=== PATIENT | female | born 1935 | race African-American/Black ===

== ENCOUNTER 2019-04-01 18:24 | Emergency (ER) | payer MEDICARE, SELFPAY ==
[2019-04-01 18:40] VITALS: BP 106/79; PULSE 86; RESP 16; TEMP 36.6; O2SAT 100
--- NOTE | 2019-04-01 19:43 | ED.GENADULT ---
HPI - General Adult General Chief complaint: Wound/Laceration Stated complaint: Ear Wound Time Seen by Provider: 04/01/19 18:47 Source: patient Mode of arrival: ambulatory Limitations: no limitations History of Present Illness HPI narrative: Patient is a 84-year-old female who presents with family for bleeding from the right ear canal is currently on Eliquis which she takes for chronic A. fib patient on arrival to emergency department is resting comfortably in the room in no distress patient has not been sick or had URI symptoms or any injury or trauma per family patient on arrival resting comfortably in the room in no distress Review of Systems Review of Systems: All systems reviewed & are unremarkable except as noted in HPI and below PMFSH Past Medical History Medical History Atrial fibrillation Social History Social History Smoking status: Never smoker Exam Narrative: Exam Narrative: GENERAL: Well-appearing, well-nourished, and in no acute distress. HEAD: Normocephalic, atraumatic. EYES: PERRLA and EOMI. ENT: Nares clear, no rhinorrhea or epistaxis. Mucous membranes moist. Oropharynx without tonsillar hypertrophy exudate or other lesions. Left TM pearly bradshaw nonbulging small amount of cerumen in the canal. Right TM not erythematous nonbulging small amount of residual blood in the right canal no active bleeding EXTREMITIES: Normal range of motion. No edema. SKIN: Warm, dry, no rash. NEURO: No focal deficits. Alert and oriented x3. PSYCH: Normal mood and affect. Course Course Emergency Course: Patient with bleeding from the right ear canal with no obvious site and no distress resting comfortably Vital Signs Vital signs: Vital Signs Temperature 97.8 F 04/01/19 18:40 Pulse Rate 86 04/01/19 18:40 Respiratory Rate 16 04/01/19 18:40 Blood Pressure 106/79 04/01/19 18:40 Pulse Oximetry 100 04/01/19 18:40 Temperature 97.8 F 04/01/19 18:40 Pulse Rate 86 04/01/19 18:40 Respiratory Rate 16 04/01/19 18:40 Blood Pressure 106/79 04/01/19 18:40 Pulse Oximetry 100 04/01/19 18:40 Medical Decision Making MDM Narrative Medical decision making narrative: Patient in the room in no distress aware of case findings treatment plan and diagnosis agreeing to follow-up as directed or to return if symptoms worsen or concerns provided with ENT referral Vital Signs Vital Signs: Vital Signs Temperature 97.8 F 04/01/19 18:40 Pulse Rate 86 04/01/19 18:40 Respiratory Rate 16 04/01/19 18:40 Blood Pressure 106/79 04/01/19 18:40 Pulse Oximetry 100 04/01/19 18:40 Temperature 97.8 F 04/01/19 18:40 Pulse Rate 86 04/01/19 18:40 Respiratory Rate 16 04/01/19 18:40 Blood Pressure 106/79 04/01/19 18:40 Pulse Oximetry 100 04/01/19 18:40 Discharge Plan Discharge Clinical Impression: Bleeding from right ear Patient Disposition: Home, Self-Care Condition: Stable Instructions: Antibiotic Form, Acute Wounds (ED) Additional Instructions: Follow up with your primary care doctor in 5-7 days for re-evaluation. Go to ER for worsening pain, vision changes, nausea/vomiting, fever/chills, weakness, chest pain, shortness of breath, numbness/tingling, slurred speech, difficulty walking, change in mental status etc. or any other concerns. Follow-up with ENT in the next 7 days for reevaluation Take any prescribed medications as directed. Follow-up/Referrals: UNKNOWN,DOCTOR [Primary Care Provider] - Cristopher Dias MD [Physician] -
== END 2019-04-01 20:10 | disposition home or self-care (01) ==
PROVIDERS: Emergency Provider Emergency Medicine
DX: S01.301A Unspecified open wound of right ear, initial encounter (principal); I48.20 Chronic atrial fibrillation, unspecified; Z79.01 Long term (current) use of anticoagulants; X58.XXXA Exposure to other specified factors, initial encounter
CPT/HCPCS: 99281